=== PATIENT | female | born 1985 | race Caucasian/White ===

== ENCOUNTER 2017-05-26 19:33 | Emergency (ER) | payer BC, OTHER ==
[~2017-05-26] VITALS: Ht 165.1 cm; Wt 60.6 kg
[~2017-05-26 19:33] MED LIST: DOCU-94 PO; HYDR-5688 PO; INSPMPNVLG; LEVO75TA5 PO; PRENTAB26 PO
[2017-05-26 19:41] VITALS: TEMP 36.9; Ht 165.1 cm; Wt 60.6 kg
[2017-05-26] MEDS ORDERED: HYDROCODONE/HOMATROPINE SYRUP 5MG/1.5MG 5ML UDP PO STA (20:07)
[2017-05-26] MEDS ORDERED: SODIUM CHLORIDE 0.9% 1000ML 1,000 ML IV STA (20:07)
[2017-05-26] MEDS ORDERED: ALBUTEROL 0.083% NEBU SOLN 3 ML VIAL INH STA (20:07)
[2017-05-26] MEDS ORDERED: AZITHROMYCIN 250 MG TAB PO STA (20:07)
[2017-05-26] MEDS ORDERED: KETOROLAC TROMETHAMINE 30 MG/ML VIAL IV STA (20:11)
--- NOTE | 2017-05-26 20:11 | EMERGENCY ROOM VISIT NOTE ---
History Report prepared by Boo: Zoila Sears Under the Supervision of: Dr. James Ford M.D. First contact with patient: 19:50 Chief Complaint: CONGESTION Stated Complaint: CHEST/HEAD CONGESTION/DIABETIC,REF BY [facility] Nursing Triage Summary: pt c/o cold sx's for past week and half, cough, congestion, yellow mucus, body aches and chills. History of Present Illness The patient is a 31 year old female who presents to the Emergency Room with complaints of worsening cold symptoms for the past week and a half. She states 5 days ago she was feeling better and went to the doctor who told her it was a virus. She then went to the doctor again 3 days ago and who gave her amoxicillin , and she kept getting worse. She states she has taken multiple medications to alleviate the symptoms, but nothing is working. She notes that she has a cough, yellow mucus, and has body chills and aches. Source of History: patient Onset: past week and a half Timing: worsening Associated Symptoms: + chills, + cough Note: Positive body aches and yellow mucus. Review of Systems See HPI for pertinent positives & negatives. A total of 10 systems reviewed and were otherwise negative. Past Medical & Surgical Medical Problems: (1) Diabetes mellitus type 1 (2) Nausea & vomiting Family History FHx: kidney stones (father) Social History Smoking Status: Current Some Day Smoker Alcohol Use: occasionally Drug Use: none Marital Status: single Housing Status: lives with family Occupation Status: employed Current/Historical Medications Scheduled Amoxicillin (Amoxil), 500 MG PO TID Azithromycin (Zithromax), 250 MG PO DAILY Benzonatate (Benzonatate), 100 MG PO TID Insulin Aspart (novoLOG INSULIN PUMP ), 1 EA N/A UD Allergies Coded Allergies: No Known Allergies (Unverified , 03/24/16) Physical Exam Vital Signs Date Time Temp Pulse Resp B/P (MAP) Pulse Ox O2 Delivery O2 Flow Rate FiO2 05/26/17 21:47 111 20 120/64 97 05/26/17 19:41 36.9 126 18 126/71 96 Room Air Physical Exam GENERAL: Patient is a healthy-appearing well-nourished female HEAD: Normocephalic atraumatic EYES: Ocular movements intact pupils equal and react to light OROPHARYNX mucous membranes are moist no exudates present no erythema or edema present NECK: Supple no nuchal rigidity CHEST: Good equal expansion. LUNGS: Clear and equal to auscultation. Coughing on exam. No strider or wheezing present. CARDIAC: Normal S1 and S2 ABDOMEN: Soft nontender no guarding BACK: No CVA tenderness EXTREMITIES: No pain upon palpation normal muscle strength in all groups no clubbing cyanosis or edema NEURO: Patient is following commands and answering questions appropriately. Alert and oriented x3 Cranial Nerves 2-12 grossly intact Medical Decision & Procedures ER Provider Diagnostic Interpretation: Radiology results as stated below per my review and radiologist interpretation: CHEST ONE VIEW PORTABLE CLINICAL HISTORY: 31 years-old Female presenting with Pt c/o cough, head congestion, diabetes. TECHNIQUE: Portable upright AP view of the chest was obtained. COMPARISON: 01/24/2014. FINDINGS: Cardiomediastinal silhouette normal. Lungs and pleural spaces clear. Osseous structures normal. Upper abdomen normal. IMPRESSION: 1. No acute cardiopulmonary disease. Electronically signed by: Adeel Gee M.D. 05/26/2017 8:59 PM Dictated Date/Time: 05/26/2017 8:58 PM Laboratory Results 05/26/17 20:22 Red Blood Count 4.27, Mean Corpuscular Volume 88.8, Mean Corpuscular Hemoglobin 30.4, Mean Corpuscular Hemoglobin Concent 34.3, Mean Platelet Volume 10.6, Neutrophils (%) (Auto) 60.8, Lymphocytes (%) (Auto) 31.4, Monocytes (%) (Auto) 6.3, Eosinophils (%) (Auto) 0.4, Basophils (%) (Auto) 0.8, Neutrophils # (Auto) 4.76, Lymphocytes # (Auto) 2.45, Monocytes # (Auto) 0.49, Eosinophils # (Auto) 0.03, Basophils # (Auto) 0.06 05/26/17 20:22 Test 05/26/17 19:48 05/26/17 20:08 05/26/17 20:22 05/26/17 20:37 Bedside Glucose 282 mg/dl (70-90) Influenza Type A Antigen Neg for Influ A (NEG) Influenza Type B Antigen Neg for Influ B (NEG) White Blood Count 7.81 K/uL (4.8-10.8) Red Blood Count 4.27 M/uL (4.2-5.4) Hemoglobin 13.0 g/dL (12.0-16.0) Hematocrit 37.9 % (37-47) Mean Corpuscular Volume 88.8 fL (80-100) Mean Corpuscular Hemoglobin 30.4 pg (25-34) Mean Corpuscular Hemoglobin Concent 34.3 g/dl (32-36) Platelet Count 254 K/uL (130-400) Mean Platelet Volume 10.6 fL (7.4-10.4) Neutrophils (%) (Auto) 60.8 % Lymphocytes (%) (Auto) 31.4 % Monocytes (%) (Auto) 6.3 % Eosinophils (%) (Auto) 0.4 % Basophils (%) (Auto) 0.8 % Neutrophils # (Auto) 4.76 K/uL (1.4-6.5) Lymphocytes # (Auto) 2.45 K/uL (1.2-3.4) Monocytes # (Auto) 0.49 K/uL (0.11-0.59) Eosinophils # (Auto) 0.03 K/uL (0-0.5) Basophils # (Auto) 0.06 K/uL (0-0.2) RDW Standard Deviation 43.8 fL (36.4-46.3) RDW Coefficient of Variation 13.4 % (11.5-14.5) Immature Granulocyte % (Auto) 0.3 % Immature Granulocyte # (Auto) 0.02 K/uL (0.00-0.02) Anion Gap 9.0 mmol/L (3-11) Est Creatinine Clear Calc Drug Dose 77.2 ml/min Estimated GFR () 92.5 Estimated GFR (Non- 79.8 BUN/Creatinine Ratio 14.1 (10-20) Calcium Level 9.5 mg/dl (8.5-10.1) Total Bilirubin 1.1 mg/dl (0.2-1) Direct Bilirubin 0.3 mg/dl (0-0.2) Aspartate Amino Transf (AST/SGOT) 10 U/L (15-37) Alanine Aminotransferase (ALT/SGPT) 15 U/L (12-78) Alkaline Phosphatase 51 U/L (45-117) Total Protein 7.6 gm/dl (6.4-8.2) Albumin 3.7 gm/dl (3.4-5.0) Labs reviewed by ED physician. Medications Administered Medications (Trade) Dose Ordered Sig/Dory Route Start Time Stop Time Status Last Admin Dose Admin Sodium Chloride 1,000 ml @ 999 mls/hr Q1H1M STAT IV 05/26/17 20:07 05/26/17 21:07 DC 05/26/17 20:18 999 MLS/HR Albuterol Sulfate (Ventolin 0.083% 2.5MG/3ML Neb) 2.5 mg NOW STAT INH 05/26/17 20:07 05/26/17 20:11 DC 05/26/17 20:18 2.5 MG Hydrocodone Bit/ Homatropine Methylb (Hycodan Syrup) 5 ml NOW STAT PO 05/26/17 20:07 05/26/17 20:11 DC 05/26/17 20:19 5 ML Azithromycin (Zithromax Tab) 500 mg NOW STAT PO 05/26/17 20:07 05/26/17 20:11 DC 05/26/17 20:18 500 MG Ketorolac Tromethamine (Toradol Inj) 30 mg NOW STAT IV 05/26/17 20:11 05/26/17 20:12 DC 05/26/17 20:19 30 MG Hydrocodone Bit/ Homatropine Methylb (Hycodan Elix Homepack 5/1.5MG/ 5ML) 1 homepack UD STAT PO 05/26/17 21:28 05/26/17 21:29 DC 05/26/17 21:28 1 HOMEPACK Albuterol (Ventolin Hfa Inhaler) 2 puffs NOW ONCE INH 05/26/17 21:30 05/26/17 21:31 DC 05/26/17 21:30 2 PUFFS ED Course 2000: Past medical records reviewed. The patient was evaluated in room C4. A complete history and physical examination was performed. 2006: Azithromycin 500 mg PO Hycodan Syrup 5 ml PO Albuterol Sulfate 2.5 mg INH 2010: Toradol Inj 30 mg IV 2127: Hycodan Elix Homepack 5/ 1.5MG /5 Ml 0: Albuterol 2 puffs INH 3: Upon reexamination the patient is content. I discussed results and treatment plan with the patient. She verbalizes agreement and understanding. The patient is ready for discharge. Medical Decision Differential diagnosis: Etiologies such as infections, reactive airway disease, pneumonia, pneumothorax , COPD, CHF, cardiac ischemia, pulmonary embolism, musculoskeletal, gastrointestinal, as well as others were entertained. This is a 31-year-old female who presents emergency Department with cough and wheezing. The patient was given an hour-long breathing treatment in the emergency department along with a normal saline bolus, Toradol. Repeat examination revealed improvement patient's symptoms. I do feel that the patient as well as to be discharged home for follow-up with primary care physician. Patient was given an inhaler for home. She does not have an elevation in her white blood count cell count. She has no evidence of meningitis encephalitis on examination I feel can be safely discharged. Patient was in agreement with the treatment plan. Medication Reconcilliation Current Medication List: was personally reviewed by me Blood Pressure Screening Patient's blood pressure: Normal blood pressure Impression Primary Impression: Bronchitis Scribe Attestation The scribe's documentation has been prepared under my direction and personally reviewed by me in its entirety. I confirm that the note above accurately reflects all work, treatment, procedures, and medical decision making performed by me. Departure Information Dispostion Home / Self-Care Prescriptions Azithromycin (ZITHROMAX) 250 Mg Tab 250 MG PO DAILY, #4 TAB Prov: James Ford MD 05/26/17 Referrals Yayo Allen M.D. (PCP) Forms HOME CARE DOCUMENTATION FORM, IMPORTANT VISIT INFORMATION Patient Instructions My [facility] Additional Instructions Use inhaler twice every 6 hours Increase fluids next 48 hours Take Tylenol 1000 mg every 6 hours You received narcotic or benzodiazepene medication while in the emergency room today. This is an addictive medication that may cause drowziness as well as constipation. Do not drive, operate heavy machinery, or drink alcohol under the influence of this medication. You have been examined and treated today on an emergency basis only. This is not a substitute for, or an effort to provide, complete comprehensive medical care. It is impossible to recognize and treat all injuries or illnesses in a single emergency department visit. It is therefore important that you follow up closely with Dr Moss. Call as soon as possible for an appointment. Thank you for your time and consideration. I look forward to speaking with you again soon. Please don't hesitate to call us if you have any questions.
[2017-05-26] MEDS ORDERED: BENZ100C7 PO (20:17)
[2017-05-26] MEDS ORDERED: AMOX500C3 PO (20:17)
[2017-05-26 20:31] LABS: BASO % 0.8 %; BASO ABS # 0.06 K/uL (0-0.2); EOS % 0.4 %; EOS ABS # 0.03 K/uL (0-0.5); HEMATOCRIT 37.9 % (37-47); IG# 0.02 K/uL (0.00-0.02); LYMPH % 31.4 %; LYMPH ABS # 2.45 K/uL (1.2-3.4); MEAN CELL VOLUME 88.8 fL (80-100); MEAN CORPUSCULAR HEMOGLOBIN 30.4 pg (25-34); MEAN CORPUSCULAR HGB CONC 34.3 g/dl (32-36); MEAN PLATELET VOLUME 10.6 fL (7.4-10.4); MONO % 6.3 %; MONO ABS # 0.49 K/uL (0.11-0.59); NEUT % 60.8 %; NEUT ABS # 4.76 K/uL (1.4-6.5); PLATELET COUNT 254 K/uL (130-400); RED CELL DISTRIBUTION WIDTH CV 13.4 % (11.5-14.5); RED CELL DISTRIBUTION WIDTH SD 43.8 fL (36.4-46.3); WHITE BLOOD COUNT 7.81 K/uL (4.8-10.8)
[2017-05-26 20:49] LABS: ALBUMIN 3.7 gm/dl (3.4-5.0); CALCIUM 9.5 mg/dl (8.5-10.1); CREATININE 0.95 mg/dl (0.60-1.20); POTASSIUM 3.7 mmol/L (3.5-5.1)
[2017-05-26 20:50] LABS: INFLUENZA B ANTIGEN Neg for Influ B (NEG)
[2017-05-26 20:52] LABS: TOTAL PROTEIN 7.6 gm/dl (6.4-8.2)
--- NOTE | 2017-05-26 21:00 | DIAGNOSTIC IMAGING REPORT ---
CHEST ONE VIEW PORTABLE CLINICAL HISTORY: 31 years-old Female presenting with Pt c/o cough, head congestion, diabetes. TECHNIQUE: Portable upright AP view of the chest was obtained. COMPARISON: 01/24/2014. FINDINGS: Cardiomediastinal silhouette normal. Lungs and pleural spaces clear. Osseous structures normal. Upper abdomen normal. IMPRESSION: 1. No acute cardiopulmonary disease. Electronically signed by: Adeel Gee M.D. 05/26/2017 8:59 PM Dictated Date/Time: 05/26/2017 8:58 PM
[2017-05-26] MEDS ORDERED: HYCODAN 60ML BOTTLE HOMEPACK PO STA (21:28)
[2017-05-26] MEDS ORDERED: AZIT-60 PO (21:29)
[2017-05-26] MEDS ORDERED: ALBUTEROL HFA 8 GM INHALER INH ONE (21:30)
[2017-05-26 21:47] VITALS: BP 120/64; PULSE 111; O2SAT 97
== END 2017-05-26 21:50 | disposition home or self-care (01) ==
LOC: C.EDB 19:35 → C.EDC 21:50
DX: J40 Bronchitis, not specified as acute or chronic (principal); E10.9 Type 1 diabetes mellitus without complications; F17.200 Nicotine dependence, unspecified, uncomplicated

== ENCOUNTER 2020-08-13 15:25 | Observation (INO) ==
[2020-08-13 17:02] LABS: Basophils # (auto) 0.03 K/uL (0-0.2); Basophils % (auto) 0.3 %; Eosinophils # (auto) 0.02 K/uL (0-0.5); Eosinophils % (auto) 0.2 %; Hematocrit (blood only) 40.3 % (37-47); Hemoglobin 14.1 g/dL (12.0-16.0); Immature Granulocytes # (auto) 0.02 K/uL (0.00-0.02); Immature Granulocytes % (auto) 0.2 %; Lymphocytes # (auto) 1.46 K/uL (1.2-3.4); Lymphocytes % (auto) 14.8 %; Mean Corpuscular Hemoglobin 31.4 pg (25-34); Mean Corpuscular Volume 89.8 fL (80-100); Mean Platelet Volume 11.5 fL (7.4-10.4); Monocytes # (auto) 0.69 K/uL (0.11-0.59); Neutrophils # (auto) 7.65 K/uL (1.4-6.5); Neutrophils % (auto) 77.5 %; Platelet Count 257 K/uL (130-400); RDW Coefficient of Variation 13.6 % (11.5-14.5); RDW Standard Deviation 44.8 fL (36.4-46.3); Red Blood Count 4.49 M/uL (4.2-5.4); White Blood Count 9.87 K/uL (4.8-10.8)
[2020-08-13] MEDS ORDERED: ONDANSETRON INJ 2 MG/ML 2 ML VIAL IV STA ×2 (17:06→19:28)
[2020-08-13] MEDS ORDERED: MoRPHine SULFATE 4 MG/ML 1 ML CARP\\VIAL IV STA (17:06)
[2020-08-13] MEDS ORDERED: SODIUM CHLORIDE 0.9% 1000ML 1,000 ML IV STA (17:06)
[2020-08-13] MEDS ORDERED: MoRPHine SULFATE 2 MG/ML CARP ONE (17:16)
[2020-08-13 17:18] LABS: Albumin Level 3.8 gm/dl (3.4-5.0); Creatinine Clr Calc Pharmacy 92.9 ml/min; Est GFR (African American) 101.4; Est GFR (Non-African American) 87.5; Potassium 3.7 mmol/L (3.5-5.1)
[2020-08-13 17:21] LABS: Albumin Globulin Ratio 1.1 (0.9-2); Bilirubin,Total 1.3 mg/dl (0.2-1); Globulin 3.6 gm/dl (2.5-4.0); Total Protein 7.4 gm/dl (6.4-8.2)
--- NOTE | 2020-08-13 17:25 | Emergency Department Note ---
History of Present Illness General Chief complaint: Abdominal Pain Stated complaint: ABD PAIN Time Seen by Provider: 08/13/20 16:56 Source: patient History of Present Illness Provider complaint: Abdominal pain Onset (ago): day(s) 2 Location: abdomen, left and right Radiation: non-radiation Severity: severe Maximum Pain Intensity: 10 Quality: + sharp Relieved By: + none Associated symptoms: + nausea/vomiting and + other (Urinary symptoms); no chest pain, no cough, no fever/chills and no shortness of breath This is a 35-year-old female who presents with abdominal pain. The patient states that she started having urinary symptoms including frequency and burning on urination with cloudy urine 2 days ago. She called her doctor who placed her on an antibiotic. She states almost immediately after taking the antibiotic she started having abdominal pain. She describes the pain as diffuse throughout her abdomen. She rates it a 10 out of 10 in severity. She states it feels like a sharp jabbing pain at times. No alleviating factors. No associated fever or chills. She did have some dry heaving. She denies any recent illness or any cough or cold symptoms, chest pain, shortness of breath or diarrhea. She states that her urinary symptoms are improved but still has a little bit of pain with urination. She states that she had a very small bowel movement today. Home Medications Medication Instructions Recorded Confirmed Type omeprazole 20 mg PO DAILY 02/23/18 12/17/18 History flash glucose scanning reader #1 ea 12/17/18 12/17/18 History glucagon (human recombinant) 1 mg 1 mg IM .COMPLEX PRN 12/17/18 12/17/18 History solution for injection FreeStyle Dia 14 Day Sensor #7 ea NS 03/19/19 Rx insulin aspart U-100 100 unit/mL 120 units CONTINUOUS SUBCUTANEOUS 07/03/19 Rx subcutaneous solution INFUSION DAILY 90 Days #108 ml ergocalciferol (vitamin D2) 1,250 50,000 units PO WEEKLY #13 cap 08/19/19 Rx mcg (50,000 unit) capsule Allergies Allergy/AdvReac Type Severity Reaction Status Date / Time No Known Allergies Allergy Unverified 03/24/16 14:07 Past Med/Surg History Medical History Diabetes mellitus type 1 Gastroparesis No pertinent family history UTI (urinary tract infection) Surgical History Hx of hand surgery Family History Grandmother (Paternal) Colorectal cancer Other No pertinent family history Social History Smoking Status: Current every day smoker Preferred Language: Macedonian Communication Ability: Effective current occupational status: employed Feels Safe at Home: Yes Review of Systems See HPI for pertinent positives & negatives. and A total of 10 systems reviewed and were otherwise negative Physical Exam Vital Signs Vital Signs - 24 hr 08/13/20 16:00 Temperature 37.1 C Temperature Source Temporal Artery Scan Pulse Rate 100 H Respiratory Rate 20 Respiratory Effort / Characteristics Non-Labored Spontaneous Respiratory Depth Normal Respiratory Pattern Regular Blood Pressure 138/89 Blood Pressure Mean 105 Pulse Oximetry 100 Oxygen Delivery Method Room Air Sepsis Recent Fever Within 48 Hours No Sepsis New/Unexplained Change in Mental Status No Sepsis Action Taken by Nursing No Action Required Constitutional: Vital signs reviewed. Eyes: Pupils are equal round reactive to light. Conjunctiva are noninjected. ENT: Pharynx is clear without erythema or exudate. Mucous membranes are dry. Neck supple without meningeal signs. Respiratory: Clear to auscultation bilaterally. Breath sounds are equal bilaterally. Cardiovascular: Regular rate and rhythm. No rubs or gallops. GI: Soft, nondistended with tenderness in the epigastric region as well as the right mid and lower abdomen. No guarding. Bowel sounds are present. Musculoskeletal: No peripheral edema. No CVA tenderness. Integumentary: No cyanosis. or jaundice. Neurological: The patient is awake and alert. No focal deficits. Psychiatric: Anxious. Course Administered Medications Discontinued Medications Sodium Chloride (Nss 1000ml) 1,000 mls @ 999 mls/hr IV .Q1H1M STA Stop: 08/13/20 18:06 Last Admin: 08/13/20 17:20 Dose: 999 mls/hr Documented by: [id number] Ioversol (Optiray 300 100ml) 88 ml IV ONCE ONE Stop: 08/13/20 18:05 Last Admin: 08/13/20 18:04 Dose: 88 ml Documented by: [id number] Morphine Sulfate (Morphine Sulfate 4 Mg/Ml 1 Ml Carp\Vial) 2 mg IV NOW STA Stop: 08/13/20 17:07 Last Admin: 08/13/20 17:21 Dose: Not Given Documented by: [id number] Morphine Sulfate (Morphine Sulfate 2 Mg/Ml Carp) Confirm Administered Dose 2 mg .ROUTE .STK-MED ONE Stop: 08/13/20 17:17 Last Admin: 08/13/20 17:18 Dose: 2 mg Documented by: [id number] Ondansetron HCl (Ondansetron Inj 2 Mg/Ml 2 Ml Vial) 4 mg IV NOW STA Stop: 08/13/20 17:07 Last Admin: 08/13/20 17:18 Dose: 4 mg Documented by: [id number] Medical Decision Making Differential Diagnosis Acute appendicitis, perforation, abscess, bowel obstruction, UTI, pyelonephritis Medical Records Attestation: I reviewed the patient's medical records. I did perform a limited focused review of portions of the patient's old chart on the electronic medical record. The patient has had no recent pertinent visits to this hospital. Home Medications Current Medication List: was personally reviewed by me Laboratory Data Attestation: I reviewed the patient's lab results. Result diagrams: 08/13/20 16:50 08/13/20 16:50 Lab Results 08/13/20 08/13/20 08/13/20 Range/Units 16:50 16:50 17:24 WBC 9.87 (4.8-10.8) K/uL RBC 4.49 (4.2-5.4) M/uL Hgb 14.1 (12.0-16.0) g/dL Hct 40.3 (37-47) % MCV 89.8 (80-100) fL MCH 31.4 (25-34) pg MCHC 35.0 (32-36) g/dL RDW Std Deviation 44.8 (36.4-46.3) fL RDW Coeff of [place]ju 13.6 (11.5-14.5) % Plt Count 257 (130-400) K/uL MPV 11.5 H (7.4-10.4) fL Immature Gran % (Auto) 0.2 % Neut % (Auto) 77.5 % Lymph % (Auto) 14.8 % [place] % (Auto) 7.0 % Eos % (Auto) 0.2 % Baso % (Auto) 0.3 % Neut # (Auto) 7.65 H (1.4-6.5) K/uL Lymph # (Auto) 1.46 (1.2-3.4) K/uL [place] # (Auto) 0.69 H (0.11-0.59) K/uL Eos # (Auto) 0.02 (0-0.5) K/uL Baso # (Auto) 0.03 (0-0.2) K/uL Immature Gran # (Auto) 0.02 (0.00-0.02) K/uL Sodium 135 L (136-145) mmol/L Potassium 3.7 (3.5-5.1) mmol/L Chloride 105 (98-107) mmol/L Carbon Dioxide 22 (21-32) mmol/L Anion Gap 8.0 (3-11) BUN 6 L (7-18) mg/dl Creatinine 0.86 (0.6-1.2) mg/dl Est Cr Clr Drug Dosing 92.9 ml/min Est GFR ( Amer) 101.4 Est GFR (Non-Af Amer) 87.5 BUN/Creatinine Ratio 7.0 L (10-20) Glucose 254 H (70-99) mg/dl Calcium 9.0 (8.5-10.1) mg/dl Total Bilirubin 1.3 H (0.2-1) mg/dl AST 8 L (15-37) U/L ALT 15 (12-78) U/L Alkaline Phosphatase 62 (45-117) U/L Total Protein 7.4 (6.4-8.2) gm/dl Albumin 3.8 (3.4-5.0) gm/dl Globulin 3.6 (2.5-4.0) gm/dl Albumin/Globulin Ratio 1.1 (0.9-2) Lipase 43 L (73-393) U/L Urine Color Yellow Urine Appearance Turbid A (Clear) Urine pH 6.0 (4.5-7.5) Ur Specific [place] 1.015 (1.000-1.030) Urine Protein 2+ H (Negative) Urine Glucose (UA) 3+ H (Negative) Urine Ketones 2+ H (Negative) Urine Blood 3+ H (Negative) Urine Nitrite Negative (Negative) Urine Bilirubin Negative (Negative) Urine Urobilinogen Negative (Negative) Ur Leukocyte Esterase 2+ H (Negative) Urine WBC (Auto) >30 H (0-5) /hpf Urine RBC (Auto) 5-10 H (0-4) /hpf U Hyaline Cast (Auto) 1-5 (0-5) /lpf U Epithel Cells (Auto) >30 H (0-5) /lpf Urine Bacteria (Auto) 4+ H (Negative) Urine Yeast Not Reportable Urine Test (Negative) 08/13/20 Range/Units 17:24 WBC (4.8-10.8) K/uL RBC (4.2-5.4) M/uL Hgb (12.0-16.0) g/dL Hct (37-47) % MCV (80-100) fL MCH (25-34) pg MCHC (32-36) g/dL RDW Std Deviation (36.4-46.3) fL RDW Coeff of [place]ju (11.5-14.5) % Plt Count (130-400) K/uL MPV (7.4-10.4) fL Immature Gran % (Auto) % Neut % (Auto) % Lymph % (Auto) % [place] % (Auto) % Eos % (Auto) % Baso % (Auto) % Neut # (Auto) (1.4-6.5) K/uL Lymph # (Auto) (1.2-3.4) K/uL [place] # (Auto) (0.11-0.59) K/uL Eos # (Auto) (0-0.5) K/uL Baso # (Auto) (0-0.2) K/uL Immature Gran # (Auto) (0.00-0.02) K/uL Sodium (136-145) mmol/L Potassium (3.5-5.1) mmol/L Chloride (98-107) mmol/L Carbon Dioxide (21-32) mmol/L Anion Gap (3-11) BUN (7-18) mg/dl Creatinine (0.6-1.2) mg/dl Est Cr Clr Drug Dosing ml/min Est GFR ( Amer) Est GFR (Non-Af Amer) BUN/Creatinine Ratio (10-20) Glucose (70-99) mg/dl Calcium (8.5-10.1) mg/dl Total Bilirubin (0.2-1) mg/dl AST (15-37) U/L ALT (12-78) U/L Alkaline Phosphatase (45-117) U/L Total Protein (6.4-8.2) gm/dl Albumin (3.4-5.0) gm/dl Globulin (2.5-4.0) gm/dl Albumin/Globulin Ratio (0.9-2) Lipase (73-393) U/L Urine Color Urine Appearance (Clear) Urine pH (4.5-7.5) Ur Specific [place] (1.000-1.030) Urine Protein (Negative) Urine Glucose (UA) (Negative) Urine Ketones (Negative) Urine Blood (Negative) Urine Nitrite (Negative) Urine Bilirubin (Negative) Urine Urobilinogen (Negative) Ur Leukocyte Esterase (Negative) Urine WBC (Auto) (0-5) /hpf Urine RBC (Auto) (0-4) /hpf U Hyaline Cast (Auto) (0-5) /lpf U Epithel Cells (Auto) (0-5) /lpf Urine Bacteria (Auto) (Negative) Urine Yeast Urine Test Negative (Negative) Imaging Data Radiologist's Impression: Abdomen/Pelvis CT 08/13/20 17:[address] WITH IV CONTRAST CT DOSE: 350.32 mGy.cm HISTORY: Acute right lower quadrant abdominal pain pain eval for appe TECHNIQUE: Multiaxial CT images of the abdomen and pelvis were performed following the IV administration of 88 cc of Optiray, A dose lowering technique was utilized adhering to the principles of ALARA. COMPARISON STUDY: CT abdomen and pelvis 03/24/2016 FINDINGS: Clear lung bases. No pneumatosis or pneumoperitoneum. The imaged inferior cardiac chambers are unremarkable. The spleen is mildly enlarged, 13.8 cm. Unremarkable pancreas, gallbladder and adrenal glands. The liver is within normal limits. Patency of the hepatic and portal veins. There are a few nonobstructing calculi of the right kidney measuring up to approximately 3 mm. Several nonobstructing calculi of the left kidney are also noted measuring up to 3-4 mm. No ureteral calculi or hydronephrosis. Bilateral urothelial thickening of the collecting systems and ureters, right greater than left with mild periureteral inflammatory stranding. Slight distention of the bilateral ureters. Urinary bladder wall thickening with perivesicular stranding. Uterus is unremarkable. Probable dominant left ovarian follicle, 2.2 cm. Trace free pelvic fluid, likely physiologic. Aorta and IVC are unremarkable. No adenopathy. No bowel obstruction or bowel wall thickening. Mild fecal retention. No bowel obstruction or bowel wall thickening. Normal appendix. No acute fracture. IMPRESSION: 1. No bowel obstruction or bowel wall thickening. Normal appendix. 2. Urothelial thickening of the renal collecting systems and ureters with mild periureteral inflammatory stranding. Mild bladder wall thickening with perivesicular stranding. Findings are suggestive of cystitis with ascending ureteritis and pyelitis. 3. Nonobstructing bilateral nephrolithiasis. No ureteral calculi or hydronephrosis. 4. Mild splenomegaly. ACT 112: Negative or not required by law. The above report was generated using voice recognition software. It may contain grammatical, syntax or spelling errors. Electronically signed by: Michael Abraham M.D. 08/13/2020 6:23 PM MDM Narrative I did evaluate the patient as noted above. The patient is presenting with diffuse abdominal pain with urinary symptoms. She has been on 2 days of Bactrim with no significant relief. She is diabetic and appears dehydrated. She is vomiting as well. IV access was established. I did treat her with normal saline IV. She was also given morphine and Zofran IV. I did order a urine analysis. She does have a significant infection. Urine culture was sent. I did order and review the patient's blood work as noted in the electronic medical record. Her white blood cell count is not elevated. Electrolytes are unremarkable. Her glucose is elevated at 254. She is not acidotic. I did order a CT of the abdomen and pelvis. I did review the images myself as well as the radiology report as described above. She has evidence of cystitis, ureteritis and pyelitis. I did treat the patient with ceftriaxone 2 g IV. I did discuss the test results with the patient. She will be admitted for IV antibiotics and fluids. I did discuss case with the hospitalist and shoe caser. Impression & Plan Acute pyelitis, Acute hyperglycemia, Acute dehydration Discharge Plan Visit Data Chief Complaint: Abdominal Pain Stated Complaint: ABD PAIN ED Provider: Nando Fletcher Discharge Problem: Acute pyelitis, Acute hyperglycemia, Acute dehydration Patient Disposition: Being Evaluated by Hospitalist Forms Stand Alone Forms: My [facility] Prescriptions Prescriptions: No Action (DME) FreeStyle Dia 14 Day Sensor kit See Dose Instructions .ROUTE .MEDSUPPLY Qty: 7 RF: 3 Novolog U-100 Insulin aspart 100 unit/mL solution 120 units continuous subcutaneous infusion DAILY 90 Days Qty: 108 RF: 3 ergocalciferol (vitamin D2) 1,250 mcg (50,000 unit) capsule 50,000 units PO WEEKLY Qty: 13 RF: 0 (DME) FreeStyle Dia 14 Day [place] misc See Dose Instructions .ROUTE .MEDSUPPLY Qty: 1 RF: 0 Glucagon Emergency Kit (human) 1 mg recon soln 1 mg IM .COMPLEX PRNRF: 0 omeprazole 20 mg capsule,delayed release(DR/EC) 20 mg PO DAILY RF: 0 Referrals Referrals: Yayo Allen MD [Primary Care Provider] -
[2020-08-13 17:43] LABS: Appearance Urine Turbid (Clear); Bacteria Urine Automated 4+ (Negative); Bilirubin Urine Negative (Negative); Blood Urine 3+ (Negative); Color Urine Yellow; Epithelial Cell Urine Auto >30 /lpf (0-5); Glucose Urine UA 3+ (Negative); Ketones Urine 2+ (Negative); Leukocyte Esterase Urine 2+ (Negative); Nitrite Urine Negative (Negative); Pregnancy Test, Urine Negative (Negative); Protein Urine 2+ (Negative); Specific Gravity Urine 1.015 (1.000-1.030); Urobilinogen Urine Negative (Negative); WBC Urine Automated >30 /hpf (0-5)
[2020-08-13] MEDS ORDERED: OPTIRAY 300 100mL IV ONE (18:04)
[2020-08-13] MEDS ORDERED: cefTRIAXone SODIUM 2,000 MG/70 ML BAG IV STA (18:06)
--- NOTE | 2020-08-13 18:25 | CT Scan Report ---
ABDOMEN AND PELVIS CT WITH IV CONTRAST CT DOSE: 350.32 mGy.cm HISTORY: Acute right lower quadrant abdominal pain pain eval for appe TECHNIQUE: Multiaxial CT images of the abdomen and pelvis were performed following the IV administrat ion of 88 cc of Optiray, A dose lowering technique was utilized adhering to the principles of ALARA. COMPARISON STUDY: CT abdomen and pelvis 03/24/2016 FINDINGS: Clear lung bases. No pneumatosis or pneumoperitoneum. The imaged inferior cardiac chambers are unrema rkable. The spleen is mildly enlarged, 13.8 cm. Unremarkable pancreas, gallbladder and adrenal glands . The liver is within normal limits. Patency of the hepatic and portal veins. There are a few nonobstructing calculi of the right kidney measuring up to approximately 3 mm. Severa l nonobstructing calculi of the left kidney are also noted measuring up to 3-4 mm. No ureteral calcul i or hydronephrosis. Bilateral urothelial thickening of the collecting systems and ureters, right gre ater than left with mild periureteral inflammatory stranding. Slight distention of the bilateral uret ers. Urinary bladder wall thickening with perivesicular stranding. Uterus is unremarkable. Probable d ominant left ovarian follicle, 2.2 cm. Trace free pelvic fluid, likely physiologic. Aorta and IVC are unremarkable. No adenopathy. No bowel obstruction or bowel wall thickening. Mild fecal retention. No bowel obstruction or bowel wa ll thickening. Normal appendix. No acute fracture. IMPRESSION: 1. No bowel obstruction or bowel wall thickening. Normal appendix. 2. Urothelial thickening of the renal collecting systems and ureters with mild periureteral inflammat ory stranding. Mild bladder wall thickening with perivesicular stranding. Findings are suggestive of cystitis with ascending ureteritis and pyelitis. 3. Nonobstructing bilateral nephrolithiasis. No ureteral calculi or hydronephrosis. 4. Mild splenomegaly. ACT 112: Negative or not required by law. The above report was generated using voice recognition software. It may contain grammatical, syntax o r spelling errors. Electronically signed by: Michael Abraham M.D. 08/13/2020 6:23 PM
[2020-08-13] MEDS ORDERED: MoRPHine SULFATE 2 MG/ML CARP IV STA (19:28)
[2020-08-13] MEDS ORDERED: ACETAMINOPHEN 1000 MG/100 ML IV IV ONE (19:30)
[2020-08-13 19:36] LABS: Influenza A virus by PCR Negative (Neg); Influenza B virus by PCR Negative (Neg); RSV by PCR Negative (Neg); SARS CoV2 RNA(COVID-19) InHosp NEGATIVE (Negative)
--- NOTE | 2020-08-13 20:00 | History & Physical Report ---
Date of Service August 13, 2020 Assessment & Plan (1) Pyelonephritis: Pt is 35 y/o F with PMH DM I on insulin pump, GERD, anxiety resented to ER with complaint of dysuria x 2 days, N/V, chills and abdominal pain x 1 day. 2 days started on Bactrim In ER Pt afebrile, P: 100, R: 20, BP: 138/89, 100% on RA. No leukocytosis. UA: 3+blood, 2+leuk esterase, 4+bacteria, >[address] ABD/PELVIS: No bowel obstruction or bowel wall thickening. Normal appendix. Urothelial thickening of the renal collecting systems and ureters with mild periureteral inflammatory stranding. Mild bladder wall thickening with perivesicular stranding. Findings are suggestive of cystitis with ascending ureteritis and pyelitis. Nonobstructing bilateral nephrolithiasis. No ureteral calculi or hydronephrosis. -In ER received 1L NSS, Rocephin 2GM IV, Zofran, 2mg morphine -Urine culture, blood cultures pending (drawn after IV antibiotics started) -Rocephin -IVF -Zofran prn -CBC, BMP in am (2) Diabetes mellitus type 1: A1c: 8.2 in 05/2019 -Continue insulin pump. Pt to continue to manage. If BSGs not well controlled plan to d/c insulin pump and will take over glycemic control -Monitor BSGs -A1c in am (3) GERD (gastroesophageal reflux disease): -Continue PPI DVT Prophylaxis -SCDs Follows with Dr Allen for routine care Pt was seen and care coordinated with Dr Roberts. See addendum History of Present Illness Chief Complaint: Abdominal pain Primary Care Provider: Yayo Allen MD Pt is 35 y/o F with PMH DM I on insulin pump, GERD, anxiety resented to ER with complaint of abdominal pain x1 day. Patient states 2 days ago started with dysuria, hematuria and PCP called in Bactrim. She states last night started with diffuse abdominal aching and stabbing pains and nausea and vomiting. Patient denies known fevers. She does report chills. Denies diaphoresis, hematemesis, diarrhea, constipation, SILVA, dizziness, syncope, vision changes, neck pain, CP, SOB, orthopnea, palpitations, cough, sore throat, choking, otalgia, rhinorrhea, paresthesias, weakness, extremity weakness, extremity edema, rashes, vaginal bleeding or discharge. Allergies Allergy/AdvReac Type Severity Reaction Status Date / Time No Known Allergies Allergy Unverified 03/24/16 14:07 Home Medications Medication Instructions Recorded Confirmed Type flash glucose scanning reader #1 ea 12/17/18 12/17/18 History glucagon (human recombinant) 1 mg 1 mg IM DIRECTED PRN 12/17/18 08/13/20 History solution for injection FreeStyle Dia 14 Day Sensor #7 ea NS 03/19/19 Rx insulin aspart U-100 100 unit/mL 120 units CONTINUOUS SUBCUTANEOUS 07/03/19 08/13/20 Rx subcutaneous solution INFUSION DAILY 90 Days #108 ml cholecalciferol (vitamin D3) 25 mcg PO DAILY 08/13/20 08/13/20 History [Vitamin D3] esomeprazole magnesium [Nexium] 40 mg PO QAM 08/13/20 08/13/20 History sulfamethoxazole-trimethoprim 1 tab PO DAILY 08/13/20 08/13/20 History Past Med/Surg History Medical History (Updated 08/13/20 @ 20:06 by Ivon Vargas PA-C) Anxiety Diabetes mellitus type 1 Gastroparesis GERD (gastroesophageal reflux disease) UTI (urinary tract infection) Surgical History (Updated 08/13/20 @ 19:59 by Ivon Vargas PA-C) History of Hx of hand surgery Family History (Updated 08/13/20 @ 19:59 by Ivon Vargas PA-C) Grandmother (Paternal) Colorectal cancer Social History (Updated 08/13/20 @ 20:00 by Ivon Vargas PA-C) Smoking Status: Current every day smoker Tobacco Type: Cigarettes Cigarettes Per Day: 5; Tobacco Cessation Education Requested by Patient: No Hx Alcohol Use: No Hx Substance Use: No Preferred Language: Slovak Communication Ability: Effective Toll Line Inspector Required: No Beliefs That Will Affect Care: None Current Living Situation: Spouse current occupational status: employed Feels Safe at Home: Yes Assistive Devices: Glasses Review of Systems Review of Systems: All systems reviewed & are unremarkable except as noted in HPI & below Physical Exam Physical Exam: General: +anxious, WDWN Head: normocephalic, atraumatic Eyes: conjunctiva non-injected, anicteric ENT: normal inspection external ears, nose, mucous membranes moist Neck: supple, trachea midline Lungs: clear, no respiratory distress, no wheezing/rhonchi/rales CV: RRR, no murmur, no pretibial edema Abd: normal BS, soft,+tenderness to palpation suprapubic and right CVA, no rebound Ext: no cyanosis, no calf tenderness Neuro: A&O x 3, no focal deficits noted, +anxious affect Skin: warm, dry Results & Data Results & Data ([facility]) Vital Signs (Past 12 Hours) Vital Signs Temp Pulse Pulse Resp BP BP Pulse Ox 08/13/20 18:43 95 H 20 143/79 H 99 08/13/20 16:00 37.1 C 100 H 20 138/89 100 Laboratory Results Short CBC 08/13/20 Range/Units 16:50 WBC 9.87 (4.8-10.8) K/uL Hgb 14.1 (12.0-16.0) g/dL Hct 40.3 (37-47) % Plt Count 257 (130-400) K/uL BMP 08/13/20 16:50 Sodium 135 L Potassium 3.7 Chloride 105 Carbon Dioxide 22 BUN 6 L Creatinine 0.86 Glucose 254 H Calcium 9.0 Liver Function 08/13/20 Range/Units 16:50 Total Bilirubin 1.3 H (0.2-1) mg/dl AST 8 L (15-37) U/L ALT 15 (12-78) U/L Alkaline Phosphatase 62 (45-117) U/L Albumin 3.8 (3.4-5.0) gm/dl Urine 08/13/20 Range/Units 17:24 Urine Color Yellow Urine Appearance Turbid A (Clear) Urine pH 6.0 (4.5-7.5) Ur Specific [place] 1.015 (1.000-1.030) Urine Protein 2+ H (Negative) Urine Glucose (UA) 3+ H (Negative) Diagnostic Findings Abdomen/Pelvis CT 08/13/20 17:[address] WITH IV CONTRAST CT DOSE: 350.32 mGy.cm HISTORY: Acute right lower quadrant abdominal pain pain eval for appe TECHNIQUE: Multiaxial CT images of the abdomen and pelvis were performed following the IV administration of 88 cc of Optiray, A dose lowering technique was utilized adhering to the principles of ALARA. COMPARISON STUDY: CT abdomen and pelvis 03/24/2016 FINDINGS: Clear lung bases. No pneumatosis or pneumoperitoneum. The imaged inferior cardiac chambers are unremarkable. The spleen is mildly enlarged, 13.8 cm. Unremarkable pancreas, gallbladder and adrenal glands. The liver is within normal limits. Patency of the hepatic and portal veins. There are a few nonobstructing calculi of the right kidney measuring up to approximately 3 mm. Several nonobstructing calculi of the left kidney are also noted measuring up to 3-4 mm. No ureteral calculi or hydronephrosis. Bilateral urothelial thickening of the collecting systems and ureters, right greater than left with mild periureteral inflammatory stranding. Slight distention of the bilateral ureters. Urinary bladder wall thickening with perivesicular stranding. Uterus is unremarkable. Probable dominant left ovarian follicle, 2.2 cm. Trace free pelvic fluid, likely physiologic. Aorta and IVC are unremarkable. No adenopathy. No bowel obstruction or bowel wall thickening. Mild fecal retention. No bowel obstruction or bowel wall thickening. Normal appendix. No acute fracture. IMPRESSION: 1. No bowel obstruction or bowel wall thickening. Normal appendix. 2. Urothelial thickening of the renal collecting systems and ureters with mild periureteral inflammatory stranding. Mild bladder wall thickening with perivesicular stranding. Findings are suggestive of cystitis with ascending ureteritis and pyelitis. 3. Nonobstructing bilateral nephrolithiasis. No ureteral calculi or hydronephrosis. 4. Mild splenomegaly. ACT 112: Negative or not required by law. The above report was generated using voice recognition software. It may contain grammatical, syntax or spelling errors. Electronically signed by: Michael Abraham M.D. 08/13/2020 6:23 PM Code Status & VTE Plan VTE Prophylaxis Plan VTE Prophylaxis will be ordered: Yes Supervising Physician Co-Signing Physician Notes Care coordinated with Ivon Vargas PA-C. Agree with above note. Patient seen and examined. Please refer to her notes for full details. Vital signs reviewed. Physical exam: General exam: Alert and oriented. Not in acute distress. CVS: S1 and S2 heard, regular rate and rhythm, no murmurs. RS: Clear to auscultation, no wheezing or crackles. ABD: Soft, bowel sounds present, nontender, no distention. PEDIATRIC SPORTS MEDICINE SPECIALIST: Nonfocal. EXT: No edema, no erythema. Labs: Reviewed. Assessment and plan: 35F with hx of DM on insulin pump presents with two days of abdominal pain and burning micturition. Was started on Bactrim by PCP but her symptoms were getting worse and was having nausea. Ct scan showing b/l pyelonephritis Started on iv rocephin. Pain control. Fluids. Follow cultures. To continue home insulin pump for diabetes and monitor blood sugars. If Sugars not controlled can consult pharmacy.Monitor in the hospital. Other diagnosis and plan of care as per Ivon Vargas PA-C. Niko crenshaw MD.
[2020-08-13] MEDS ORDERED: ONDANSETRON INJ 2 MG/ML 2 ML VIAL ONE (20:13)
[2020-08-13] MEDS ORDERED: GLUCOSE 10 TABS/TUBE PO PRN (21:28)
[2020-08-13] MEDS ORDERED: GLUCOSE 40% GEL 15 GM TUBE PO PRN (21:28)
[2020-08-13] MEDS ORDERED: DEXTROSE 50% 50 ML SYRINGE IV PRN (21:28)
[2020-08-13] MEDS ORDERED: GLUCAGON FOR INJ 1 MG VIAL SQ PRN (21:28)
[2020-08-13] MEDS ORDERED: MoRPHine SULFATE 2 MG/ML CARP IV PRN (21:28)
[2020-08-13] MEDS: SODIUM CHLORIDE 0.9% 1000ML 1,000 ML IV SCH (22:12)
[2020-08-13] MEDS: ACETAMINOPHEN 325 MG TAB PO PRN (23:30)
[2020-08-14] MEDS: ACETAMINOPHEN 325 MG TAB PO PRN ×3 (04:07→14:49)
[2020-08-14] MEDS: SODIUM CHLORIDE 0.9% 1000ML 1,000 ML IV SCH ×3 (04:45→22:32)
[2020-08-14 06:47] LABS: Hematocrit (blood only) 35.9 % (37-47); Hemoglobin 12.2 g/dL (12.0-16.0); Mean Corpuscular Volume 91.1 fL (80-100); Mean Platelet Volume 11.7 fL (7.4-10.4); Platelet Count 223 K/uL (130-400); RDW Coefficient of Variation 13.7 % (11.5-14.5); Red Blood Count 3.94 M/uL (4.2-5.4)
[2020-08-14 07:06] LABS: BUN Creatinine Ratio 11.8 (10-20); Calcium 8.7 mg/dl (8.5-10.1); Creatinine Clr Calc Pharmacy 119.1 ml/min; Est GFR (Non-African American) 113.9; Potassium 4.2 mmol/L (3.5-5.1)
[2020-08-14 08:06] LABS: Estimated Average Glucose 177 mg/dl; Hemoglobin A1C 7.8 % (4.5-5.6)
[2020-08-14] MEDS: ONDANSETRON INJ 2 MG/ML 2 ML VIAL IV PRN (08:29)
[2020-08-14] MEDS: PANTOprazole 40 MG TAB PO SCH (09:01)
[2020-08-14] MEDS: cefTRIAXone SODIUM 2,000 MG in DEXTROSE 5% 50 ML IV SCH (09:02)
[2020-08-14] MEDS: CHOLECALCIFEROL 1,000 UNITS 25 MCG TAB PO SCH (09:02)
--- NOTE | 2020-08-14 15:13 | Hospitalist Progress Note ---
Date of Service August 14, 2020 Assessment & Plan (1) Pyelonephritis: Pt is 35 y/o F with PMH DM I on insulin pump, GERD, anxiety resented to ER with complaint of dysuria x 2 days, N/V, chills and abdominal pain x 1 day. 2 days started on Bactrim In ER Pt afebrile, P: 100, R: 20, BP: 138/89, 100% on RA. No leukocytosis. UA: 3+blood, 2+leuk esterase, 4+bacteria, >[address] ABD/PELVIS: No bowel obstruction or bowel wall thickening. Normal appendix. Urothelial thickening of the renal collecting systems and ureters with mild periureteral inflammatory stranding. Mild bladder wall thickening with perivesicular stranding. Findings are suggestive of cystitis with ascending ureteritis and pyelitis. Nonobstructing bilateral nephrolithiasis. No ureteral calculi or hydronephrosis. pt is continued with IV rocephin and IV fluid clinically much better urine culture gram negative bacilli (2) Diabetes mellitus type 1: A1c: 8.2 in 05/2019 -Continue insulin pump. Pt to continue to manage. (3) GERD (gastroesophageal reflux disease): -Continue PPI DVT Prophylaxis -SCDs Follows with Dr Allen for routine care Disposition : dc home with PO abx once urine culture sensitivity available Admission and Anticipated Discharge Date Admission Date: August 13, 2020 Subjective pt reports feeling much better today no nausea or vomiting still have flank pain left is more tender than right no fever or chills dysuria has improved expecting to be discharged home tomorrow Review of Systems Review of Systems: All systems reviewed & are unremarkable except as noted in Subjective Physical Exam Physical Exam: General: +anxious, WDWN Head: normocephalic, atraumatic Eyes: conjunctiva non-injected, anicteric ENT: normal inspection external ears, nose, mucous membranes moist Neck: supple, trachea midline Lungs: clear, no respiratory distress, no wheezing/rhonchi/rales CV: RRR, no murmur, no pretibial edema Abd: normal BS, soft,+tenderness to palpation suprapubic and right CVA, no rebound Ext: no cyanosis, no calf tenderness Neuro: A&O x 3, no focal deficits noted, +anxious affect Skin: warm, dry Results & Data Results & Data ([facility]) Vital Signs (Past 12 Hours) Vital Signs Temp Pulse Resp BP Pulse Ox 08/14/20 14:36 37.0 C 73 16 114/71 93 08/14/20 07:29 36.7 C 78 17 114/68 98
[2020-08-14] MEDS ORDERED: FLUCONAZOLE 50 MG TAB PO ONE (20:08)
[2020-08-14] MEDS: IBUPROFEN 200 MG TAB PO PRN (20:30)
[2020-08-14] MEDS ORDERED: CLOTRIMAZOLE VAGINAL CR 7 APPLN/45 GM TUBE PV SCH ×2 (21:00)
[2020-08-15] MEDS: CARBOHYDRATES FOR HYPOGLYCEMIA PO PRN ×2 (05:58→06:14)
[2020-08-15] MEDS: IBUPROFEN 200 MG TAB PO PRN (07:19)
--- NOTE | 2020-08-15 08:01 | Hospitalist Progress Note ---
Date of Service August 15, 2020 Assessment & Plan (1) Pyelonephritis: Pt is 35 y/o F with PMH DM I on insulin pump, GERD, anxiety resented to ER with complaint of dysuria x 2 days, N/V, chills and abdominal pain x 1 day. 2 days started on Bactrim CT ABD/PELVIS: No bowel obstruction or bowel wall thickening. Normal appendix. Urothelial thickening of the renal collecting systems and ureters with mild periureteral inflammatory stranding. Mild bladder wall thickening with perivesicular stranding. Findings are suggestive of cystitis with ascending ureteritis and pyelitis. Nonobstructing bilateral nephrolithiasis. No ureteral calculi or hydronephrosis. Patient received IV Rocephin, and IV fluids, Clinically much improved, no fever or chills, no nausea, abdomen/flank pain has resolved, no dysuria. Urine culture E. coli, resistance to Bactrim Sensitive to Rocephin which patient received during this hospital stay Will be discharged home with p.o. ciprofloxacin for 5 more days Patient will be discharged home today (2) Diabetes mellitus type 1: A1c: 8.2 in 05/2019 -Continue insulin pump. Pt to continue to manage. Low BSG noted early this morning, blood sugar much better, Patient's blood sugar has been running high because of the acute infection, as UTI/pyelonephritis getting well treated blood sugar continues to decline, Patient is asked to make adjustment to her insulin pump accordingly (3) GERD (gastroesophageal reflux disease): -Continue PPI DVT Prophylaxis -SCDs Follows with Dr Allen for routine care Disposition : Stable to be discharged home today with p.o. antibiotic Admission and Anticipated Discharge Date Admission Date: August 13, 2020 Subjective Follow-up visit for pyelonephritis: Patient reports feeling much better today, no nausea, or abdominal pain or discomfort, Flank pain has improved significantly, no dysuria No fever or chills, Had low blood sugar episode this morning, on insulin pump BSG in normal level now. Patient denies of any symptoms, expecting to be discharged home today Review of Systems Review of Systems: All systems reviewed & are unremarkable except as noted in Subjective Physical Exam Physical Exam: General: +anxious, WDWN Head: normocephalic, atraumatic Eyes: conjunctiva non-injected, anicteric ENT: normal inspection external ears, nose, mucous membranes moist Neck: supple, trachea midline Lungs: clear, no respiratory distress, no wheezing/rhonchi/rales CV: RRR, no murmur, no pretibial edema Abd: normal BS, soft, no flank pain Ext: no cyanosis, no calf tenderness Neuro: A&O x 3, no focal deficits noted, +anxious affect Skin: warm, dry Results & Data Results & Data ([facility]) Vital Signs (Past 12 Hours) Vital Signs Temp Pulse Resp BP Pulse Ox 08/15/20 07:00 37.0 C 75 16 123/77 97 08/14/20 22:22 36.7 C 71 16 130/85 96
--- NOTE | 2020-08-15 08:02 | Discharge Summary ---
Date of Service August 15, 2020 Admission HPI Per Admitting Provider Pt is 35 y/o F with PMH DM I on insulin pump, GERD, anxiety resented to ER with complaint of abdominal pain x1 day. Patient states 2 days ago started with dysuria, hematuria and PCP called in Bactrim. She states last night started with diffuse abdominal aching and stabbing pains and nausea and vomiting. Patient denies known fevers. She does report chills. Denies diaphoresis, hematemesis, diarrhea, constipation, SILVA, dizziness, syncope, vision changes, neck pain, CP, SOB, orthopnea, palpitations, cough, sore throat, choking, otalgia, rhinorrhea, paresthesias, weakness, extremity weakness, extremity edema, rashes, vaginal bleeding or discharge. Principal Diagnosis UTI Pyelonephritis Discharge Exam Physical exam: General: No acute distress, alert awake oriented x3 HEENT: PERRLA, EOMI, Heart: Regular S1-S2, no carotid bruit, no JVD, no lower extremity edema Lungs: Clear to auscultate, no wheeze or rales Abdomen: Soft nontender, no CVA tenderness Extremity: No cyanosis, no deformity, normal strength 5 out of 5 with upper and lower Neuro: No focal neurological deficit normal speech, normal visual field, Motor strength : normal both upper and lower extremity, sensation intact Psych: Alert awake oriented x3, normal affect Discharge Data Allergies Allergy/AdvReac Type Severity Reaction Status Date / Time No Known Allergies Allergy Unverified 03/24/16 14:07 Consultations 08/13/20 18:53 ED Decision to Admit Stat Ordered Studies 08/13/20 17:06 CT abd pelvis IV con only Stat Hospital Course (1) Pyelonephritis: Pt is 35 y/o F with PMH DM I on insulin pump, GERD, anxiety resented to ER with complaint of dysuria x 2 days, N/V, chills and abdominal pain x 1 day. 2 days started on Bactrim CT ABD/PELVIS: No bowel obstruction or bowel wall thickening. Normal appendix. Urothelial thickening of the renal collecting systems and ureters with mild periureteral inflammatory stranding. Mild bladder wall thickening with perivesicular stranding. Findings are suggestive of cystitis with ascending ureteritis and pyelitis. Nonobstructing bilateral nephrolithiasis. No ureteral calculi or hydronephrosis. Patient received IV Rocephin, and IV fluids, Clinically much improved, no fever or chills, no nausea, abdomen/flank pain has resolved, no dysuria. Urine culture E. coli, resistance to Bactrim Sensitive to Rocephin which patient received during this hospital stay Will be discharged home with p.o. ciprofloxacin for 5 more days Patient will be discharged home today (2) Diabetes mellitus type 1: A1c: 8.2 in 05/2019 -Continue insulin pump. Pt to continue to manage. Low BSG noted early this morning, blood sugar much better, Patient's blood sugar has been running high because of the acute infection, as UTI/pyelonephritis getting well treated blood sugar continues to decline, Patient is asked to make adjustment to her insulin pump accordingly (3) GERD (gastroesophageal reflux disease): -Continue PPI DVT Prophylaxis -SCDs Follows with Dr Allen for routine care Disposition : Stable to be discharged home today with p.o. antibiotic Total Time Total Time Spent Total Time Spent (In Minutes): 35 minutes Total Time Includes: Examination of the Patient, Discharge Planning and Medication Reconciliation Discharge Plan Discharge Items Patient Disposition: Home - Self-Care Reason For Visit: PYELONEPHRITIS Discharge Diagnosis: UTI Pyelonephritis Activity: Resume your previous activity Non-emergency contact: Primary Care Provider Call non-emergency contact if: you have any medication questions Follow-up/Referrals: Yayo Allen MD [Primary Care Provider] - Diet: Carb Count or DM1 Addtl Attending Provider Instructions: Please take all medications as instructed on discharge list below. It is recommended that you follow-up with your primary care physician within 1-2 weeks of hospital discharge to ensure you are still doing well. Please call if you have any questions or problems. You can reach a [facility] hospitalist on duty at [facility] [address] 24 hours a day by calling [phone] Addtl Hide Splitter Provider Instructions: PLEASE TAKE PROBIOTICS ( OVER THE COUNTER ) WHILE TAKING ANTIBIOTICS TO PREVENT DIARRHEA /LOOSE STOOL Pending Studies at Discharge: No Stand-Alone Forms: [facility], Work/School Release (Inpt), Smoking Cessation Medications and DC Order Prescriptions: New ondansetron HCl [Zofran] 4 mg tablet 4 mg PO Q6H PRN (Reason: nausea and vomiting) Qty: 120 RF: 0 ciprofloxacin HCl [Cipro] 500 mg tablet 500 mg PO BID 5 Days Qty: 10 RF: 0 Continued (DME) FreeStyle Dia 14 Day Sensor kit See Dose Instructions .ROUTE .MEDSUPPLY Qty: 7 RF: 3 Novolog U-100 Insulin aspart 100 unit/mL solution 120 units continuous subcutaneous infusion DAILY 90 Days Qty: 108 RF: 3 (DME) FreeStyle Dia 14 Day [place] misc See Dose Instructions .ROUTE .MEDSUPPLY Qty: 1 RF: 0 Glucagon Emergency Kit (human) 1 mg recon soln 1 mg IM DIRECTED PRN (Reason: hypoglycemic emergency) RF: 0 esomeprazole magnesium [Nexium] 40 mg Capsule,Delayed Release(Dr/Ec) 40 mg PO QAM RF: 0 cholecalciferol (vitamin D3) [Vitamin D3] 25 mcg (1,000 unit) Tablet 25 mcg PO DAILY RF: 0 Discontinued sulfamethoxazole-trimethoprim 800-160 mg tablet 1 tab PO DAILY RF: 0 Discharge Orders: Discharge Order (Routine); Ordered 08/15/20 Ordered By: Jojo Finn/Other Patient Handouts: Managing Type 1 Diabetes, Managing Diabetes: The A1C Test Admission Data Admit Date/Time: 08/13/20 19:12 Attending Provider: Jojo Colby Admit Provider: Niko Roberts Primary Care Provider: Yayo Allen Other Providers: Niko Roberts Other Interventions: Discharge Summary Assessment (RN) Last Done: 08/15/20 09:23
[2020-08-15] MEDS: ONDANSETRON INJ 2 MG/ML 2 ML VIAL IV PRN (08:31)
[2020-08-15] MEDS: PANTOprazole 40 MG TAB PO SCH (08:54)
[2020-08-15] MEDS: CHOLECALCIFEROL 1,000 UNITS 25 MCG TAB PO SCH (08:54)
[2020-08-15] MEDS: cefTRIAXone SODIUM 2,000 MG in DEXTROSE 5% 50 ML IV SCH (08:54)
== END 2020-08-15 10:13 | disposition home or self-care (01) ==
LOC: ED 15:49 → 3N 19:12 → SUATTDRO 19:12 → INTOOBSV 19:12 → 3N 20:25